=== PATIENT | female | born 1960 | race Caucasian/White ===

== ENCOUNTER → 2018-11-16 16:49 | Outpatient (CLI) | payer OTHER, SELFPAY ==
--- NOTE | 2018-11-16 16:52 | DI.MG.S_ITS ---
BILATERAL DIGITAL SCREENING MAMMOGRAM 3D/2D WITH CAD: 11/16/2018 CLINICAL: Routine screening. Comparison is made to exam dated: 01/15/2017 mammogram - [facility]. There are scattered fibroglandular elements in both breasts. Current study was also evaluated with a Computer Aided Detection (CAD) system. No significant masses, calcifications, or other findings are seen in either breast. There has been no significant interval change. IMPRESSION: NEGATIVE There is no mammographic evidence of malignancy. A 1 year screening mammogram is recommended. This exam was interpreted at Station ID: [id number]. NOTE: For mammograms, a report in lay terms will be sent to the patient. Approximately 15% of breast malignancies will not be visualized mammographically. In the management of a palpable breast mass, a negative mammogram must not discourage biopsy of a clinically suspicious lesion. Electronically Signed By: Rony mack/kain:11/18/2018 07:28:21 letter sent: Normal Exam ACR BI-RADS Category 1: Negative 3341F
== END ==
PROVIDERS: Visit Provider Family Medicine
DX: Z12.31 Encounter for screening mammogram for malignant neoplasm of breast (principal)
CPT/HCPCS: 77063; 77067

== ENCOUNTER → 2018-12-10 08:12 | Outpatient (CLI) | payer OTHER, SELFPAY ==
[2018-12-10 09:27] LABS: Appearance Urine UA CLEAR; Bilirubin Urine UA NEGATIVE (NEGATIVE); Color Urine UA YELLOW; Glucose Urine UA NEGATIVE (Negative); Ketones Urine UA NEGATIVE (NEGATIVE); Leukocyte Esterase Urine UA NEGATIVE (NEGATIVE); Nitrite Urine UA NEGATIVE (Negative); Occult Blood Urine UA NEGATIVE (Negative); Protein Urine UA NEGATIVE (Negative); Urobilinogen Urine UA 0.2 E.U./dL (0.2)
[2018-12-10 09:31] LABS: Add Manual Diff / Slide Review NO; Basophils Absolute Auto 0 /uL (0-100); Basophils Percent Auto 0.8 % (0-2); Eosinophils Absolute Auto 100 /uL (0-450); Hematocrit 41.4 % (36-46); Hemoglobin 13.3 g/dL (12.0-16.0); Lymphocytes Absolute Auto 1800 /uL (1100-4500); Lymphocytes Percent Auto 34.7 % (25-40); Mean Corpuscular Hemoglobin 25.8 PG (26-34); Mean Corpuscular Volume 80.7 fL (80-100); Monocytes Absolute Auto 400 /uL (0-900); Monocytes Percent Auto 6.7 % (3-14); Neutrophils Absolute Auto 3000 /uL (1500-7000); Neutrophils Percent Auto 55.8 % (50-75); Platelet Count 210 X10^3/uL (150-400); Red Blood Cell Count 5.13 X10^6/uL (4.0-5.2); Red Cell Distribution Width 14.5 % (11.6-14.8); White Blood Cell Count 5.3 X10^3/uL (4.5-11.0)
[2018-12-10 10:01] LABS: Alanine Aminotransferase 38 IU/L (9-52); Albumin 4.6 g/dL (3.5-5.0); Albumin Globulin Ratio 1.5 (1.0-2.8); Alkaline Phosphatase 94 U/L (38-126); Aspartate Aminotransferase 38 IU/L (14-36); Bilirubin Total 0.5 mg/dL (0.2-1.3); Blood Urea Nitrogen 18 mg/dL (7-17); Calcium 9.4 mg/dL (8.4-10.2); Carbon Dioxide 30 mmol/L (22-32); Chloride 102 mmol/L (98-107); Cholesterol 188 mg/dL (140-199); Estimated Glomerular Filt Rate > 60.0 mL/min (>60); Glucose 100 mg/dL (80-110); HDL Cholesterol 80 mg/dL (40-60); HEMOLYSIS < 15 (0-50); LDL Cholesterol Calculated 96 mg/dL (<100); Potassium 3.9 mmol/L (3.4-5.1); Sodium 141 mmol/L (137-145); Total Protein 7.6 g/dL (6.3-8.2); Triglycerides 58 mg/dL (35-150)
[2018-12-10 10:16] LABS: Progesterone, Total 0.47 ng/mL
[2018-12-10 10:30] LABS: Thyroid Stimulating Hormone 1.87 uIU/mL (0.47-4.68)
[2018-12-10 10:32] LABS: Estradiol, Total 19.3 pg/mL
[2018-12-13 15:14] LABS: Testosterone Free 0.5 pg/mL (0.1-6.4); Testosterone Total 8 ng/dL (2-45)
== END ==
PROVIDERS: Nurse Practitioner Family; Visit Provider Family Medicine
DX: N95.1 Menopausal and female climacteric states (principal); Z00.00 Encounter for general adult medical examination without abnormal findings; Z13.220 Encounter for screening for lipoid disorders; Z13.29 Encounter for screening for other suspected endocrine disorder; Z51.81 Encounter for therapeutic drug level monitoring
CPT/HCPCS: 36415; 80053; 80061; 81003; 82670; 84144; 84402; 84403; 84443; 85025

== ENCOUNTER → 2020-04-01 07:14 | Outpatient (CLI) | payer OTHER, SELFPAY ==
[2020-04-01 09:03] LABS: Add Manual Diff / Slide Review NO; Basophils Absolute Auto 0 /uL (0-100); Basophils Percent Auto 0.4 % (0-2); Eosinophils Absolute Auto 100 /uL (0-450); Eosinophils Percent Auto 0.8 % (2-4); Hematocrit 40.4 % (36-46); Hemoglobin 12.8 g/dL (12.0-16.0); Lymphocytes Absolute Auto 1800 /uL (1100-4500); Lymphocytes Percent Auto 22.1 % (25-40); Mean Corpuscular HGB Conc 31.8 % (30-36); Mean Corpuscular Volume 81.9 fL (80-100); Monocytes Absolute Auto 600 /uL (0-900); Monocytes Percent Auto 6.9 % (3-14); Neutrophils Absolute Auto 5700 /uL (1500-7000); Neutrophils Percent Auto 69.8 % (50-75); Platelet Count 266 X10^3/uL (150-400); Red Blood Cell Count 4.94 X10^6/uL (4.0-5.2); Red Cell Distribution Width 13.9 % (11.6-14.8); White Blood Cell Count 8.1 X10^3/uL (4.5-11.0)
[2020-04-01 09:55] LABS: Alanine Aminotransferase 21 IU/L (<35); Albumin 4.5 g/dL (3.5-5.0); Albumin Globulin Ratio 1.6 (1.0-2.8); Alkaline Phosphatase 85 U/L (38-126); Aspartate Aminotransferase 30 IU/L (14-36); BUN Creatinine Ratio 26.1 (6-22); Bilirubin Total 0.7 mg/dL (0.2-1.3); Blood Urea Nitrogen 18 mg/dL (7-17); Calcium 9.4 mg/dL (8.4-10.2); Carbon Dioxide 31 mmol/L (22-32); Chloride 100 mmol/L (98-107); Cholesterol 203 mg/dL (140-199); Estimated Glomerular Filt Rate > 60.0 mL/min (>60); Globulin 2.9 g/dL (1.7-4.1); Glucose 89 mg/dL (80-110); HDL Cholesterol 76 mg/dL (40-60); HEMOLYSIS < 15 (0-50); LDL Cholesterol Calculated 105 mg/dL (<100); Potassium 3.8 mmol/L (3.4-5.1); Sodium 137 mmol/L (137-145); Total Protein 7.4 g/dL (6.3-8.2); Triglycerides 109 mg/dL (35-150)
[2020-04-01 10:23] LABS: Thyroid Stimulating Hormone 2.71 uIU/mL (0.47-4.68)
== END ==
PROVIDERS: PCP Family Medicine; Referring Provider Family Medicine; Visit Provider Family Medicine
DX: Z00.00 Encounter for general adult medical examination without abnormal findings (principal); Z13.220 Encounter for screening for lipoid disorders; Z13.29 Encounter for screening for other suspected endocrine disorder; Z51.81 Encounter for therapeutic drug level monitoring
CPT/HCPCS: 36415; 80053; 80061; 84443; 85025

== ENCOUNTER → 2020-06-03 16:58 | Outpatient (CLI) | payer OTHER, SELFPAY ==
--- NOTE | 2020-06-03 17:00 | DI.MG.S_ITS ---
BILATERAL DIGITAL SCREENING MAMMOGRAM 3D/2D WITH CAD: 06/03/2020 CLINICAL: Routine screening. Comparison is made to exams dated: 11/16/2018 mammogram - [facility] and 01/15/2017 mammogram - [facility]. The tissue of both breasts is predominantly fatty. Current study was also evaluated with a Computer Aided Detection (CAD) system. No significant masses, calcifications, or other findings are seen in either breast. There has been no significant interval change. IMPRESSION: NEGATIVE There is no mammographic evidence of malignancy. A 1 year screening mammogram is recommended. This exam was interpreted at Station ID: [id number]. NOTE: For mammograms, a report in lay terms will be sent to the patient. Approximately 15% of breast malignancies will not be visualized mammographically. In the management of a palpable breast mass, a negative mammogram must not discourage biopsy of a clinically suspicious lesion. Electronically Signed By: Ruchi munoz/kain:06/04/2020 08:40:24 letter sent: Normal Exam ACR BI-RADS Category 1: Negative 3341F
== END ==
PROVIDERS: PCP Family Medicine; Referring Provider Family Medicine; Visit Provider Family Medicine
DX: Z12.31 Encounter for screening mammogram for malignant neoplasm of breast (principal)
CPT/HCPCS: 77063; 77067

== ENCOUNTER → 2021-06-05 08:55 | Outpatient (CLI) | payer BC, SELFPAY ==
--- NOTE | 2021-06-05 08:56 | DI.MG.S_ITS ---
BILATERAL DIGITAL SCREENING MAMMOGRAM 3D/2D WITH CAD: 06/05/2021 CLINICAL: Routine screening. Comparison is made to exams dated: 06/03/2020 mammogram, 11/16/2018 mammogram - [facility], and 01/15/2017 mammogram - [facility]. There are scattered fibroglandular elements in both breasts. Current study was also evaluated with a Computer Aided Detection (CAD) system. No significant masses, calcifications, or other findings are seen in either breast. There has been no significant interval change. IMPRESSION: NEGATIVE There is no mammographic evidence of malignancy. A 1 year screening mammogram is recommended. This exam was interpreted at Station ID: [id number]. NOTE: For mammograms, a report in lay terms will be sent to the patient. Approximately 15% of breast malignancies will not be visualized mammographically. In the management of a palpable breast mass, a negative mammogram must not discourage biopsy of a clinically suspicious lesion. Electronically Signed By: Rony mack/kain:06/05/2021 09:23:15 letter sent: Normal Exam ACR BI-RADS Category 1: Negative 3341F
== END ==
PROVIDERS: PCP Family Medicine; Referring Provider Family Medicine; Visit Provider Family Medicine
DX: Z12.31 Encounter for screening mammogram for malignant neoplasm of breast (principal)
CPT/HCPCS: 77063; 77067

== ENCOUNTER → 2022-03-05 09:54 | Outpatient (CLI) | payer OTHER, SELFPAY | PROVIDERS: PCP Physician Assistant; Referring Provider Physician Assistant; Visit Provider Physician Assistant | DX: Z13.820 Encounter for screening for osteoporosis (principal); Z78.0 Asymptomatic menopausal state | CPT/HCPCS: 77080 ==

== ENCOUNTER → 2022-03-20 16:53 | Outpatient (CLI) | payer OTHER, SELFPAY ==
--- NOTE | 2022-03-20 16:54 | DI.MG.S_ITS ---
BILATERAL DIGITAL SCREENING MAMMOGRAM 3D/2D WITH CAD: 03/20/2022 CLINICAL: Routine screening. Comparison is made to exams dated: 06/05/2021 mammogram, 06/03/2020 mammogram, and 11/16/2018 mammogram - [facility]. There are scattered areas of fibroglandular density in both breasts (category b / 25%-50% glandular tissue). Current study was also evaluated with a Computer Aided Detection (CAD) system. No significant masses, calcifications, or other findings are seen in either breast. There has been no significant interval change. IMPRESSION: NEGATIVE There is no mammographic evidence of malignancy. A 1 year screening mammogram is recommended. Future imaging is recommended as follows: 06/06/2022 screening mammogram. Based on the Tyrer Cuzick model (a risk assessment model) the patient's lifetime risk is 5.3% and her 10 year risk is 2.4%. According to the ACR, ACS, and NCCN guidelines, an annual breast MRI exam along with mammogram is recommended if the patient's lifetime risk is 20% or greater. This exam was interpreted at Station ID: [id number]. NOTE: For mammograms, a report in lay terms will be sent to the patient. Approximately 15% of breast malignancies will not be visualized mammographically. In the management of a palpable breast mass, a negative mammogram must not discourage biopsy of a clinically suspicious lesion. Electronically Signed By: Ulises garcia/kain:03/23/2022 10:44:12 letter sent: Normal Exam ACR BI-RADS Category 1: Negative 3341F
== END ==
PROVIDERS: PCP Physician Assistant; Referring Provider Physician Assistant; Visit Provider Physician Assistant
DX: Z12.31 Encounter for screening mammogram for malignant neoplasm of breast (principal)
CPT/HCPCS: 77063; 77067

== ENCOUNTER → 2022-04-03 09:06 | Outpatient (CLI) | payer OTHER, SELFPAY ==
[2022-04-03 11:30] LABS: COVID19 -Nasal RAPID Negative (Negative)
== END ==
PROVIDERS: PCP Physician Assistant; Visit Provider Surgery
DX: Z20.822 Contact with and (suspected) exposure to COVID-19 (principal); Z01.812 Encounter for preprocedural laboratory examination
CPT/HCPCS: 87635; C9803

== ENCOUNTER 2022-04-06 11:56 | Day surgery (SDC) | payer OTHER, SELFPAY ==
[2022-04-06 12:24] VITALS: BP 152/87; PULSE 72; RESP 16; TEMP 36.6; O2SAT 99; BMI 24.1
[2022-04-06] MEDS: SODIUM CHLORIDE 0.9% 1,000 ML 84 ML IV (12:34)
--- NOTE | 2022-04-06 13:11 | PM.HP.1 ---
History of Present Illness History of Present Illness Date Patient Seen: 04/06/22 Time Patient Seen: 13:11 Chief complaint: SDC Narrative: Here for colon cancer screening. Patient History Medical History Recurrent cold sores Well adult exam Surgical History Anesthesia History of section Family & Social History Social History: household members spouse Tobacco & Substance use: Smoking Status Former smoker alcohol intake current alcohol intake frequency a few times a week Substance Use Type does not use Meds Home Medications and Allergies Home Medications Medication Instructions Recorded Confirmed Type epinephrine 0.3 mg/0.3 mL 0.3 mg (0.3 mL) IM ONCE #2 ea 05/12/21 04/06/22 Rx injection, auto-injector (EpiPen 2-Cory) fluocinolone 0.025 % topical cream 1 applic topical BID Hives #120 05/12/21 04/06/22 Rx grams valacyclovir 1 gram tablet 2,000 mg PO BID #20 tabs 05/12/21 04/06/22 Rx (Valtrex) ofloxacin 0.3 % eye drops 1 drp EYE-LEFT QID 5 days #5 mL 07/12/21 04/06/22 Rx Allergies Allergy/AdvReac Type Severity Reaction Status Date / Time Penicillins Allergy Severe Anaphylaxis Verified 04/06/22 12:22 venom-wasp Allergy Severe Swelling Verified 04/06/22 12:36 of Lip/Tongue/Throat latex Allergy Mild hives Verified 04/06/22 12:22 Review of Systems Review of Systems ROS: Yes All systems reviewed with the patient and are negative except as otherwise documented Exam Vital Signs (past 8 hours): - 04/06/22 12:24 Temperature 97.9 F Pulse Rate 72 Respiratory Rate 16 Blood Pressure 152/87 H Pulse Oximetry 99 Oxygen Delivery Method Room Air Oxygen Delivery Method Room Air Const General: cooperative HENMT Head: normal to inspection Eyes General: appearance normal, both eyes and all related structures Neck Neck: normal visual inspection Chest Chest: normal inspection of the chest Resp Effort & Inspection: normal respiratory effort Cardio Rate: regular rate GI Inspection: normal to inspection Skin General: no rashes or lesions noted Neuro General: patient alert and patient awake Extrem General: normal to inspection and no pedal edema Psych Appearance: grossly normal Assessment & Plan Assessment & Plan narrative: 62-year-old female here for colon cancer screening. Colonoscopy is planned for today. Time Spent With Patient Critical Care time: I spent a total of [] minutes of critical care time on this patient's care today; this time is exclusive of procedural time.
--- NOTE | 2022-04-06 13:12 | PM.PREOP ---
Pre-operative Note COVID-19 COVID-19 status: Negative Result date/Date tested (Pos, Neg/Pending): 04/03/22 Criteria for continued procedure: Possibility delay results in more complex future surgery or treatment Interval Note History & Physical reviewed/Exam performed by Physician: Yes Changes to H&P: No ASA Class (for procedural sedation): II
--- NOTE | 2022-04-06 14:59 | P.OP.COLON_ITS ---
Operative Date/Time/Diagnoses Date of procedure: 04/06/22 Time of procedure: 14:59 Pre-op diagnosis: Colon cancer screening Post-op diagnosis: same Procedure & Clinicians Study performed: Colonoscopy Same procedure as scheduled: Yes Indications: Colon cancer screening Surgeon: Elan Flynn Procedure Notes SCOAP/Timeout: Done Procedure in detail: After the risks and benefits were explained, written and verbal informed consent was obtained. The patient was brought into the procedure room and placed into the left lateral decubitus position. Please see nurse clinical psychologist licensed notes for sedation details. Digital rectal examination was accomplished. The scope was introduced into the patient and advanced under direct visualization to the cecum as identified by the appendiceal orifice and ileocecal valve. The scope was slowly withdrawn to carefully examine the mucosa for any defects or lesions. Comprehensive imaging was accomplished throughout the rectum including the dentate line. The colon was decompressed, the scope was then removed from the patient who tolerated the procedure well. Bowel prep adequate Pediatric colonoscope Scope withdrawal time: 7 minutes Sedation minutes: 24 Complications: none Impression: Fairly tortuous sigmoid colon. Otherwise no significant mucosal abnormalities throughout. Grade 2 hemorrhoids were noted. Endoscopic diagnosis 1. Grade 2 hemorrhoids 2. Twisty left colon 3. Otherwise visually unremarkable colonoscopy Post-procedure Plan for aftercare: 1. Repeat colonoscopy 10 years; sooner should symptoms warrant an earlier exam. 2. Otherwise follow-up in primary care as before. Disposition: PACU
[2022-04-06 15:03] VITALS: BP 123/72; PULSE 72; RESP 21; TEMP 36.2; O2SAT 100
[2022-04-06 15:08] VITALS: BP 116/72; PULSE 64; RESP 16; O2SAT 100
[2022-04-06 15:13] VITALS: BP 125/82; PULSE 66; RESP 14; O2SAT 100
[2022-04-06 15:19] VITALS: BP 151/88; PULSE 70; RESP 19; O2SAT 100
[2022-04-06 15:20] VITALS: BP 165/85; PULSE 62; RESP 19; TEMP 36.8; O2SAT 100
== END 2022-04-06 15:39 | disposition home or self-care (01) ==
PROVIDERS: PCP Physician Assistant; Referring Provider Internal Medicine Gastroenterology; Visit Provider Internal Medicine Gastroenterology
PROC: 0DJD8ZZ Inspection of Lower Intestinal Tract, Via Natural or Artificial Opening Endoscopic (ICD-10-PCS; CPT 45378; principal; 2022-04-06 13:00)
DX: Z12.11 Encounter for screening for malignant neoplasm of colon (principal); K64.1 Second degree hemorrhoids
CPT/HCPCS: 45378; J2704

== ENCOUNTER → 2024-05-05 | Outpatient (CLI) | payer MEDICARE, OTHER, SELFPAY ==
--- NOTE | 2024-05-05 08:45 | DI.US.S_ITS ---
Patient Name: MEGHAN HANKS date: 1960 Sex: F Attending Physician: Mitchel Indications: Date: 05/05/2024 10:09 At the request of: ANTOINETTE MARTE Procedure: US breast LT limited LIMITED ULTRASOUND OF LEFT BREAST AND AXILLA: 05/05/2024 CLINICAL: Palpable left breast lump + focal mass on mammo. Comparison is made to exam dated: 05/05/2024 mammogram - [facility]. Color flow and real-time ultrasound of the left breast 10-11 o'clock, and axilla regions were performed. Maldonado scale images of the real-time examination were reviewed. There is a 0.9 cm x 0.6 cm well defined cyst with internal echoes in the left breast at 10 o'clock posterior depth 10 cm from the nipple. This correlates with mammography findings of an oil cyst and correlates with the palpable abnormality. Color flow imaging demonstrates that there is no vascularity present. There is an incidental 0.8 cm x 0.6 cm x 0.6 cm oval mass with an indistinct margin in the left breast at 12 o'clock anterior depth 2 cm from the nipple. This oval mass is heterogeneously echogenic with a hyperechoic rim and posterior acoustic shadowing. This correlates with mammography findings. Color flow imaging demonstrates that there is no vascularity present. No significant abnormalities were seen sonographically in the left axilla. IMPRESSION: SUSPICIOUS The 0.9 cm oil cyst in the left breast at 10 o'clock corresponds to the mammogram and palpable finding, is consistent with an oil cyst, and is benign. The incidental 0.8 cm mass in the left breast at 12 o'clock has a differential diagnosis of an enlarged lymph node, complicated cyst, resolving hematoma, possible carcinoma, or fat necrosis and is suspicious of malignancy. An ultrasound guided biopsy is recommended. Continued Report - Page 2 of 2 Patient Name: MEGHAN HANKS date: 1960 Sex: F Attending Physician: Mitchel Indications: Date: 05/05/2024 10:09 At the request of: ANTOINETTE MARTE Procedure: US breast LT limited Findings and recommendations were discussed with the patient in person by Dr Clifton Carrizales at time of exam. This exam was interpreted at Station ID: [id number]. Electronically Signed By: Ruchi munoz/:05/05/2024 10:09:12 letter sent: Biopsy Required ACR BI-RADS Category 4: Suspicious
--- NOTE | 2024-05-05 09:04 | DI.MG.S_ITS ---
BILATERAL DIGITAL DIAGNOSTIC MAMMOGRAM 3D/2D: 05/05/2024 CLINICAL: Left breast lump. Comparison is made to exams dated: 06/05/2021 mammogram, 03/20/2022 mammogram, and 06/03/2020 mammogram - [facility]. There are scattered areas of fibroglandular density (category b / 25%-50% glandular tissue). The patient is status post reduction both breasts. Both breasts have no post-operative findings of fat necrosis and oil cysts. There is a 9 mm oval oil cyst with rim calcifications in the left breast at 10 o'clock posterior depth. This is seen in additional views. This correlates to the palpable abnormality. There also is an 8 mm oval equal density asymmetry in the left breast at 12 o'clock middle depth. No other significant masses, calcifications, or other findings are seen in either breast. Mammograms are otherwise stable. IMPRESSION: INCOMPLETE: NEED ADDITIONAL IMAGING EVALUATION Bilateral mammograms demonstrate expected changes post reduction. A 9 mm oval oil cyst in the left breast at 10 o'clock posterior depth corresponds to the mammogram finding, and is benign. An ultrasound is recommended for confirmation. The 8 mm oval equal density asymmetry in the left breast at 12 o'clock middle depth is indeterminate. An ultrasound is recommended. This was performed immediately following this exam. Based on the Tyrer Cuzick model (a risk assessment model) the patient's lifetime risk is 4.8% and her 10 year risk is 2.4%. According to the ACR, ACS, and NCCN guidelines, an annual breast MRI exam along with mammogram is recommended if the patient's lifetime risk is 20% or greater. This exam was interpreted at Station ID: [id number]. NOTE: For mammograms, a report in lay terms will be sent to the patient. Approximately 15% of breast malignancies will not be visualized mammographically. In the management of a palpable breast mass, a negative mammogram must not discourage biopsy of a clinically suspicious lesion. Electronically Signed By: Ruchi munoz/:05/05/2024 09:43:14 letter sent: Additional Imaging Needed ACR BI-RADS Category 0: Incomplete: Need Additional Imaging Evaluation
== END ==
LOC: MAMMO 09:04
PROVIDERS: PCP Family Medicine; Referring Provider Family Medicine; Visit Provider Family Medicine
DX: N63.25 Unspecified lump in the left breast, overlapping quadrants; N60.02 Solitary cyst of left breast; R92.8 Other abnormal and inconclusive findings on diagnostic imaging of breast; Z78.0 Asymptomatic menopausal state
CPT/HCPCS: 76642; 77066; G0279

== ENCOUNTER → 2024-07-04 07:51 | Outpatient (CLI) | payer MEDICARE, OTHER, SELFPAY ==
[2024-07-04 09:31] LABS: Cholesterol 239 mg/dL (140-199); HDL Cholesterol 98 mg/dL (40-60); LDL Cholesterol Calculated 128 mg/dL (<100); Triglycerides 63 mg/dL (35-150)
== END ==
PROVIDERS: PCP Family Medicine; Referring Provider Family Medicine; Visit Provider Family Medicine
DX: Z13.220 Encounter for screening for lipoid disorders (principal)
CPT/HCPCS: 36415; 80061

== ENCOUNTER → 2024-09-13 15:47 | Outpatient (CLI) | payer MEDICARE, OTHER, SELFPAY ==
--- NOTE | 2024-09-13 15:49 | DI.RAD.S_ITS ---
PROCEDURE: XR LUMBAR SPINE 2-3V INDICATIONS: patient has concern for curve in spine TECHNIQUE: 3 views of the lumbar spine were acquired. COMPARISON: None. FINDINGS: Lumbar spine curvature and alignment: Mild levo scoliotic curve lumbar spine appreciated Bones: There are no osseous abnormalities. Disc spaces: Moderate T9-10 through T12-L1 mild L1-2 severe L3-4 L4-5 and L5-S1 degenerative disc disease noted. Moderate L4-5 and L5-S1 degenerative facet disease Soft tissues: No soft tissue swelling, calcification or mass. IMPRESSION: Degeneration. Dictated by: Alvarado Russell M.D. on 09/14/2024 at 12:43 Approved by: Alvarado Russell M.D. on 09/14/2024 at 12:44
--- NOTE | 2024-09-13 15:49 | DI.RAD.S_ITS ---
PROCEDURE: XR THORACIC SPINE 2V INDICATIONS: patient has concern for curve in spine TECHNIQUE: 3 views of the thoracic spine were acquired. COMPARISON: None. FINDINGS: Thoracic spine curvature and alignment: Slight rightward curve appreciated Bones: There are no osseous abnormalities. Disc spaces: Severe degenerative disc disease is present throughout the midthoracic spine. Soft tissues: No soft tissue swelling, calcification or mass. 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 on 09/14/2024 at 12:45 Approved by: Alvarado Russell M.D. on 09/14/2024 at 12:46
== END ==
PROVIDERS: PCP Family Medicine; Referring Provider Family Medicine; Visit Provider Family Medicine
DX: Z13.828 Encounter for screening for other musculoskeletal disorder (principal); M51.34 Other intervertebral disc degeneration, thoracic region; M51.35 Other intervertebral disc degeneration, thoracolumbar region; M51.369 Other intervertebral disc degeneration, lumbar region without mention of lumbar back pain or lower extremity pain; M51.379 Other intervertebral disc degeneration, lumbosacral region without mention of lumbar back pain or lower extremity pain; M47.816 Spondylosis without myelopathy or radiculopathy, lumbar region; M47.817 Spondylosis without myelopathy or radiculopathy, lumbosacral region
CPT/HCPCS: 72070; 72100

== ENCOUNTER → 2024-12-14 12:04 | Outpatient (CLI) | payer MEDICARE, OTHER, SELFPAY ==
--- NOTE | 2024-12-14 12:06 | DI.US.S_ITS ---
US breast LT limited, MM diagnostic mammo unilat LT: 12/14/2024 BI-RADS: 2 CLINICAL: 64-year old female for left diagnostic mammogram and left diagnostic breast ultrasound that is a follow-up to biopsy on 05/18/2024. Pathology showed benign fat necrosis. Tyrer-Cuzick lifetime risk of 3.0%. No personal or first-degree family history of breast cancer. The patient is status-post reduction mammoplasty. PRIOR EXAMS 05/18/2024, 05/05/2024, 03/20/2022, 06/05/2021, 06/03/2020, 11/16/2018. MAMMOGRAPHY TECHNIQUE: 2D and 3D (tomosynthesis) digital mammographic views obtained, with additional images as needed for full coverage. Current study was also evaluated with a Computer Aided Detection (CAD) system. ULTRASOUND TECHNIQUE TARGETED Left Breast Ultrasound: Real-time ultrasound exam was performed focused to area of clinical and/or imaging concern. DENSITY Left: B. There are scattered areas of fibroglandular density. MAMMOGRAPHY FINDINGS Left: Upper at 12:00, Middle depth: There is a stable biopsy microclip in the left breast correlating to benign pathology. The focal asymmetry associated with the biopsy microclip is no longer visualized. There is no significant interval change compared to post-procedure mammogram 05/18/2024. Left: There are scattered areas of benign fat necrosis with and without rim calcifications. There are no suspicious masses, calcifications, or other findings in the breast. ULTRASOUND FINDINGS Left: Upper Inner at 11:00, 2 cm from nipple: Previously biopsied mass is no longer seen on present on the current exam. Only the biopsy marker is visualized. IMPRESSION: Left * No evidence of malignancy with benign findings. RECOMMENDATIONS Bilateral * Annual screening mammography. COMMENTS: Findings and recommendations were conveyed to the patient during today's evaluation. OVERALL ASSESSMENT CATEGORY BI-RADS-2: Benign. The [employer] recommends annual screening mammography beginning at age 40 for women with average risk of breast cancer. ELECTRONICALLY SIGNED: Kezia Jackson M.D. on 12/14/2024 at 02:28:22 PM PT Interpreting Station ID: [id number]
== END ==
LOC: MAMMO 12:05
PROVIDERS: PCP Family Medicine; Referring Provider Family Medicine; Visit Provider Family Medicine
DX: R92.8 Other abnormal and inconclusive findings on diagnostic imaging of breast (principal)
CPT/HCPCS: 76642; 77065; G0279

== ENCOUNTER 2025-03-28 18:40 | Emergency (ER) | payer MEDICARE, OTHER, SELFPAY ==
[2025-03-28 18:47] VITALS: BP 185/82; PULSE 75; RESP 16; TEMP 37.1; O2SAT 99; BMI 21.4
[2025-03-28 19:19] LABS: Add Manual Diff / Slide Review NO; Hematocrit 40.0 % (36-46); Hemoglobin 13.0 g/dL (12.0-16.0); Lymphocytes Absolute Auto 400 /uL (1100-4500); Mean Corpuscular HGB Conc 32.5 % (30-36); Mean Corpuscular Hemoglobin 26.8 PG (26-34); Mean Corpuscular Volume 82.6 fL (80-100); Platelet Count 253 X10^3/uL (150-400)
[2025-03-28 19:30] LABS: Alanine Aminotransferase 26 IU/L (<35); Albumin 4.6 g/dL (3.5-5.0); Albumin Globulin Ratio 1.6 (1.0-2.8); Alkaline Phosphatase 71 U/L (38-126); Blood Urea Nitrogen 30 mg/dL (7-17); Calcium 9.3 mg/dL (8.4-10.2); Carbon Dioxide 26 mmol/L (22-32); Chloride 99 mmol/L (98-107); Estimated Glomerular Filt Rate 32 mL/min (>60); Globulin 2.9 g/dL (1.7-4.1); Glucose 160 mg/dL (70-99); HEMOLYSIS < 15 (0-50); Lipase 48 U/L (23-300); Potassium 4.8 mmol/L (3.4-5.1); Sodium 133 mmol/L (137-145); Total Protein 7.5 g/dL (6.3-8.2)
--- NOTE | 2025-03-28 20:05 | PC.NURSE ---
patient refused EKG. She has abd and breast binder on and does not want an EKG taken.
== END 2025-03-28 21:37 | disposition left against medical advice (07) ==
PROVIDERS: Emergency Provider Emergency Medicine; PCP Family Medicine
DX: R11.10 Vomiting, unspecified (principal); R10.9 Unspecified abdominal pain; Z98.890 Other specified postprocedural states
CPT/HCPCS: 80053; 83690; 85025; 99281